=== PATIENT | male | born 2000 ===

== ENCOUNTER 2021-07-01 15:49 | Emergency (ER) | payer MEDICAID ==
[2021-07-01] MEDS ORDERED: OLANZapine 5 MG Tab PO ONE (18:01)
[2021-07-02] MEDS ORDERED: OLANZapine 5 MG Tab ONE (06:56)
== END 2021-07-02 07:00 ==
LOC: LB.ED 15:49
DX: F32.A Depression, unspecified (principal); S11.81XA Laceration without foreign body of other specified part of neck, initial encounter; Z20.822 Contact with and (suspected) exposure to COVID-19; X78.1XXA Intentional self-harm by knife, initial encounter
CPT/HCPCS: 36415; 80053; 80143; 80179; 80307; 85025; 93005; 99285-25; A0425; A0429; A9270-GY; U0002

== ENCOUNTER 2021-09-24 08:51 | Emergency (ER) | payer MEDICAID ==
[2021-09-24] MEDS: Sodium Chloride 0.9% 1,000 ML IV SCH (10:50)
[2021-09-24] MEDS: Ondansetron 4 MG/2 ML SDV IVPUSH ONE (10:55)
[2021-09-24] MEDS: Ondansetron 4 MG/2 ML SDV ONE (11:47)
== END 2021-09-24 12:05 | disposition home or self-care (01) ==
LOC: LB.ED 08:51
DX: R11.2 Nausea with vomiting, unspecified (principal)
CPT/HCPCS: 36415; 74177; 80053; 80307; 81001; 82150; 83690; 85025; 96374; 99283; 99284-25; J2405; J7030

== ENCOUNTER 2021-10-20 16:37 | Emergency (ER) | payer MEDICAID | END 2021-10-20 17:59 | disposition home or self-care (01) | LOC: LB.ED 16:37 | DX: K52.9 Noninfective gastroenteritis and colitis, unspecified (principal) | CPT/HCPCS: 36415; 80053; 80307; 81001; 83690; 85025; 99281; 99284 ==